=== PATIENT | female | born 1970 | race Caucasian/White ===

== ENCOUNTER 2017-06-13 08:16 | Emergency (ER) | payer OTHER ==
[~2017-06-13] VITALS: Ht 233.6 cm; Wt 77.1 kg
[2017-06-13] MEDS ORDERED: TORSEMIDE10 MG PO (09:26)
[2017-06-13] MEDS ORDERED: KETOROLAC10 MG PO (09:30)
== END 2017-06-13 09:56 | disposition home or self-care (01) ==
LOC: ED 08:16
DX: G89.29 Other chronic pain (principal); M54.5 Low back pain; M25.551 Pain in right hip; M25.552 Pain in left hip; R35.0 Frequency of micturition; F17.200 Nicotine dependence, unspecified, uncomplicated

== ENCOUNTER → 2018-08-13 | Outpatient (CLI) | payer OTHER ==
[~2018-08-13] MED LIST: BELSOMRA20 MG PO; CETIRIZINE HYDR10 MG PO; Carafate1 GM PO; DICYCLOMINE HCL10 MG PO; FLUTICASONE PRO15 GM INH; KETOROLAC10 MG PO; NEURONTIN300 MG PO; OMEPRAZOLE40 MG PO; TORSEMIDE10 MG PO; TRAZODONE100 MG PO; VOLTAREN50 M1 PO; ZOFRAN4 MG PO
== END | disposition home or self-care (01) ==
LOC: ORTHO 00:50
DX: M25.561 Pain in right knee (principal); M25.562 Pain in left knee; M25.551 Pain in right hip; M25.552 Pain in left hip; M19.90 Unspecified osteoarthritis, unspecified site; Z91.81 History of falling

== ENCOUNTER 2018-09-27 21:18 | Emergency (ER) | payer OTHER ==
[~2018-09-27] VITALS: Ht 160 cm; Wt 79.4 kg
[~2018-09-27 21:18] MED LIST changes: -BELSOMRA20 MG PO; -CETIRIZINE HYDR10 MG PO; -Carafate1 GM PO; -DICYCLOMINE HCL10 MG PO; -FLUTICASONE PRO15 GM INH; -NEURONTIN300 MG PO; -OMEPRAZOLE40 MG PO; -TRAZODONE100 MG PO; -VOLTAREN50 M1 PO; -ZOFRAN4 MG PO
[2018-09-27 21:50] LABS: BASO % 0.4 % (0.0-1.0); EOS # 0.1 10*3/uL (0.0-0.4); EOS % 1.5 % (1.0-4.0); HEMATOCRIT 50.3 % (37.0-47.0); HEMOGLOBIN 17.1 g/dl (12.0-16.0); LYMPH % 38.5 % (27.0-41.0); MEAN CELL VOLUME 96.2 fl (81.0-99.0); MEAN CORPUSCULAR HGB 32.7 pg (27.0-31.0); MEAN PLATELET VOLUME 10.3 fl (9.6-12.3); MONO # 0.8 10*3/uL (0.1-1.0); MONO % 9.9 % (3.0-9.0); NEUT # 3.9 10*3/uL (2.3-7.9); NEUT % 49.2 % (47.0-73.0); PLATELET COUNT AUTOMATED 233 10*3/uL (130-400); RED BLOOD COUNT 5.23 10*6/uL (4.10-5.10); RED CELL DISTRI WIDTH 13.6 % (0-14.5); WHITE BLOOD COUNT 7.9 10*3/uL (4.8-10.8)
[2018-09-27 22:04] LABS: ALBUMIN 3.7 gm/dl (3.1-4.5); ALKALINE PHOSPHATASE 50 U/L (45-117); BUN 17 mg/dl (7-24); CHLORIDE 107 mmol/L (98-107); CREATININE 0.91 mg/dL (0.55-1.02); SGOT/AST 30 IU/L (3-35); SGPT/ALT 37 U/L (12-78); SODIUM 140 mmol/L (136-145); TOTAL PROTEIN 7.6 gm/dL (6.4-8.2)
[2018-09-27 22:05] LABS: LIPASE 161 U/L (73-393)
[2018-09-27 22:20] LABS: BILIRUBIN NEGATIVE (NEGATIVE); BLOOD 2+ (NEGATIVE); CLARITY CLEAR (CLEAR); COLOR YELLOW (YELLOW); GLUCOSE NEGATIVE (NEGATIVE); KETONE NEGATIVE (NEGATIVE); LEUKO ESTERASE NEGATIVE (NEGATIVE); NITRITE NEGATIVE (NEGATIVE)
[2018-09-27 22:34] LABS: BACTERIA TRACE
[2018-09-27] MEDS ORDERED: DICYCLOMINE HCL10 MG PO (22:54)
[2018-09-27] MEDS ORDERED: ZOFRAN4 MG PO (22:54)
[2018-09-28] MEDS ORDERED: NEURONTIN300 MG PO (13:50)
[2018-09-28] MEDS ORDERED: CETIRIZINE HYDR10 MG PO (13:51)
[2018-09-28] MEDS ORDERED: Carafate1 GM PO (13:51)
[2018-09-28] MEDS ORDERED: OMEPRAZOLE40 MG PO (13:52)
[2018-09-28] MEDS ORDERED: FLUTICASONE PRO15 GM INH (13:52)
[2018-09-28] MEDS ORDERED: TRAZODONE100 MG PO (13:52)
[2018-09-28] MEDS ORDERED: VOLTAREN50 M1 PO (18:23)
[2018-09-28] MEDS ORDERED: BELSOMRA20 MG PO (18:25)
[2018-10-02] MEDS ORDERED: PROTONIX40 MG PO (14:05)
[2018-10-02] MEDS ORDERED: CARAFATE1 G1 PO (14:05)
[2018-10-02] MEDS ORDERED: CYMBALTA30 MG PO (14:49)
== END 2018-09-27 23:12 | disposition home or self-care (01) ==
LOC: ED 21:18
PROVIDERS: Physician Assistant
DX: R10.13 Epigastric pain (principal); R11.2 Nausea with vomiting, unspecified; Z90.710 Acquired absence of both cervix and uterus; Z90.49 Acquired absence of other specified parts of digestive tract